=== PATIENT | female | born 1985 | race Caucasian/White ===

== ENCOUNTER 2018-02-05 13:49 | Emergency (ER) | payer MEDICAID ==
--- OUTSIDE RECORDS SUMMARY | 2018-02-05 13:59 | XMS REPORT ---
:1985 External Reference #:[id number] Author Organization [employer] Address [address] [facility] [place] [address] [place] [address] Phone [phone] Care Team Providers Name Role Phone Bibi Wood DO Primary Care Physician Unavailable Payers Type Date Identification Numbers Payment Provider Subscriber Commercial Effective: Policy Number: Tony Serrato 2017 [id number] PayID: [id number] [place] [phone] Problems Description No Information Family History Date Family Member(s) Problem(s) Comments General Asthma General Stroke General Diabetes Father Asthma Father Hypercholesterolemia Mother Alive And Well Siblings 3 brothers/autism Siblings 1 sister asthma Social History Type Date Description Comments Lives With Lives With 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 needed for pain, avoid other nsaids Percocet Active Tablets 5-325mg 20tabs 1 tab by Eddie Campos 018 mouth Edita, every 6 MD hours as needed Lamictal 00/00/0 Active Tablets 25mg 1 tab bid Unknown 000 Adderall Active Tablets 20mg 1-2 by Unknown 000 mouth every day Diclofenac Hx Tablets DR 50mg Unknown Sodium 000 - 018 Nystatin Hx Ointment [id number] apply to Unknown 000 - /GM affected area twice 018 daily Acyclovir Hx Capsules 200mg 1 cap tid Unknown 000 - 018 Ventolin HFA Hx Aerosol 108(90Base 2 puffs by Unknown 000 - ) mcg/Act mouth four times a 018 day as needed Claritin Hx Capsules 10mg 1 by mouth Unknown 000 - every day 018 Vital Signs Date Vital Result Comment 02/05/2018 Height 64 inches 5'4" Heart Rate 82 /min BP Systolic Sitting 140 mmHg BP Diastolic Sitting 85 mmHg Respiratory Rate 14 /min Pain Level 8 01/27/2018 Height 64 inches 5'4" Weight 200.00 lb Heart Rate 76 /min BP Systolic Recheck 118 mmHg BP Diastolic Recheck 76 mmHg Respiratory Rate 16 /min Body Temperature 98.1 F BMI (Body Mass Index) 34.3 kg/m2 01/13/2018 Height 64 inches 5'4" Weight 200.00 lb Heart Rate 76 /min BP Systolic Recheck 118 mmHg BP Diastolic Recheck 74 mmHg Respiratory Rate 16 /min Body Temperature 98.2 F BMI (Body Mass Index) 34.3 kg/m2 11/25/2017 Height 64 inches 5'4" Weight 207.00 lb Heart Rate 80 /min Respiratory Rate 16 /min Body Temperature 98.4 F BMI (Body Mass Index) 35.5 kg/m2 Results Description No Information Procedures Date CPT Code Description Status 01/15/2018 57615 Carpal Tunnel Release Completed Encounters Type Date Location Provider CPT E/M Dx Office Visit 02/05/2018 [facility] Lopes M.D. 08451 M06.4 10:00a Of [facility] R20.8 G56.03 R22.31 Office Visit 01/13/2018 8:15a [facility], 78294 G56.03 Blaise Dia MD Office Visit 11/25/2017 8:00a [facility], [address] G56.03 [facility] [place] R22.32 R22.31 R20.0 Plan of Care Future Appointment(s):02/17/2018 9:30 am - Eddie Kohler MD at [facility] AT Uqvnctkm45/18/2018 - Sage Lopes M.D.M06.4 Inflammatory gmtumgticyddbpvK41.8 Other disturbances of skin sijkojamdJ22.03 Carpal tunnel syndrome, bilateral upper jbsxvS83.31 Localized swelling, mass and lump, right upper limb
--- OUTSIDE RECORDS SUMMARY | 2018-02-05 13:59 | XMS REPORT ---
:1985 External Reference #:[id number] Author Organization [employer] Address [address] [facility] [place] [address] [place] [address] Phone [phone] Care Team Providers Name Role Phone Bibi Wood DO Primary Care Physician Unavailable Payers Type Date Identification Numbers Payment Provider Subscriber Commercial Effective: Policy Number: Tony Serrato 2017 [id number] PayID: [id number] [place] [phone] Problems Description No Information Family History Date [...] Form Strength Qnty SIG Indications Ordering Provider Percocet Active Tablets 5-325mg 14tabs 1 tab by Eddie F 018 mouth Edita, every 6 MD hours as needed Lamictal 0 Active Tablets 25mg 1 tab bid Unknown 000 Adderall 0 Active Tablets 20mg 1-2 by Unknown 000 mouth every day Diclofenac [address] 50mg Unknown Sodium 000 - 018 Nystatin Hx Ointment [id number] apply to Unknown 000 - /GM affected area twice 018 daily Acyclovir Hx Capsules 200mg 1 cap tid Unknown 000 - 018 Ventolin HFA Hx Aerosol 108(90Base 2 puffs by Unknown 000 - ) mcg/Act mouth four times a 018 day as needed Claritin Hx Capsules 10mg 1 by mouth Unknown 000 - every day 018 Vital Signs Date Vital Result Comment 01/27/2018 Height 64 inches 5'4" Weight 200.00 [...] 35.5 kg/m2 Results Description No Information Procedures Description No Information Encounters Type Date Location Provider CPT E/M Dx Office Visit 01/13/2018 [facility], [address] G56.03 8:15a Blaise Dia MD Office Visit 11/25/2017 [facility], [address]39 G56.03 8:00a Blaise Dia MD R22.32 R22.31 R20.0 Plan of Care Future Appointment(s):02/26/2018 9:00 am - Eddie Kohler MD at [facility] AT [place]ty98/18/2018 10:00 am - Sage Lopes M.D. at [facility]01/27/2018 - Eddie Kohler MDG56.03 Carpal tunnel syndrome, bilateral upper limbsFollow up:Follow up: to OR
--- OUTSIDE RECORDS SUMMARY | 2018-02-05 13:59 | XMS REPORT ---
:1985 External Reference #:[id number] Author Organization [employer] Address [address] [facility] [place] [address] [place] [address] Phone [phone] Care Team Providers Name Role Phone Bibi Wood DO Primary Care Physician Unavailable Payers Type Date Identification Numbers Payment Provider Subscriber Commercial Effective: Policy Number: Tony Serrato 2017 [id number] PayID: [id number] [place] [phone] Problems Description No Information Family History Date [...] Form Strength Qnty SIG Indications Ordering Provider Lamictal 00/0 Active Tablets 25mg 1 tab bid Unknown 000 Adderall /0 Active Tablets 20mg 1-2 by Unknown 000 mouth every day Diclofenac 0000/[address] 50mg Unknown Sodium 000 - 018 Nystatin 00/0 Hx Ointment [id number] apply to Unknown 000 - /GM affected area twice 018 daily Acyclovir Hx Capsules 200mg 1 cap tid Unknown 000 - 018 Ventolin HFA Hx Aerosol 108(90Base 2 puffs by Unknown 000 - ) mcg/Act mouth four times a 018 day as needed Claritin Hx Capsules 10mg 1 by mouth Unknown 000 - every day 018 Vital Signs Date Vital Result Comment 01/13/2018 Height 64 inches 5'4" Weight 200.00 [...] Location Provider CPT E/M Dx Office Visit 11/25/2017 [facility], [address] G56.03 8:00a [facility] [place] R22.32 R22.31 R20.0 Plan of Care Future Appointment(s):02/05/2018 10:00 am - Sage Lopes M.D. at [facility]
[2018-02-05 14:03] VITALS: BP 157/91
[2018-02-05] MEDS ORDERED: HYDROcodone/ACETAMIN 5-325 MG* 1 TAB PO ONE (14:11)
[2018-02-05] MEDS ORDERED: Ibuprofen TAB* 600 MG PO ONE (14:20)
--- NOTE | 2018-02-05 14:22 | UC ---
Upper Extremity HPI - HPI Summary HPI Summary: Pt is a 32 y/o F presents to ED with L wrist pain s/p surgery. Aggravating factors: Picking things up, palpation. Pt has 4 kids that she is responsible for and needs to pick them up when dealing with them. Alleviating factors: Ice, Percocet. She notes that she was on the way to E for pain when car broke down on the side of the road. She needed to filler picker and carry four kids up the hill to urgent care. She presents to uncontrollably crying from stress/pain. - History of Current Complaint Chief Complaint: UCGeneralIllness Stated Complaint: HAND PAIN Time Seen by Provider: 02/05/18 14:11 Hx Obtained From: Patient Hx Last Menstrual Period: 02/04/18 Onset/Duration: Still Present, Worse Since - Having to carry children up hill Severity Currently: Severe Pain Intensity: 9 Pain Scale Used: 0-10 Numeric Location Of Pain: Is Discrete @ - L wrist Aggravating Factor(s): Lifting Alleviating Factor(s): Ice, Other: - Percocets - Allergies/Home Medications Allergies/Adverse Reactions: Allergies Allergy/AdvReac Type Severity Reaction Status Date / Time Penicillins Allergy Hives Verified 02/05/18 13:53 PMH/Surg Hx/FS Hx/Imm Hx Other Endocrine History: Neg: DM Other Cardiovascular History: Neg: CAD, HTN - Surgical History Surgical History: Yes Surgery Procedure, Year, and Place: X2, TUBAL LIGATION carpel tunnel - Family History Known Family History: Positive: Diabetes, Other - [place] Family History: NON CONTRIBUTORY - Social History Occupation: Unemployed Lives: With Family Alcohol Use: None Substance Use Type: None Smoking Status (MU): Heavy Every Day Tobacco Smoker Have You Smoked in the Last Year: No - Immunization History Most Recent Influenza Vaccination: never Most Recent Tetanus Shot: unknown Most Recent Pneumonia Vaccination: never Review of Systems Constitutional: Negative - fever Musculoskeletal: Other: - Wrist pain All Other Systems Reviewed And Are Negative: Yes Physical Exam - Summary Physical Exam Summary: General: well-appearing, no pain distress Skin: warm, color reflects adequate perfusion, dry Head: normal Eyes: EOMI, MICHELLE ENT: normal Neck: supple, nontender Respiratory: CTA, breath sounds present Cardiovascular: RRR Abdomen: soft, nontender Bowel: present Musculoskeletal: normal, strength/ROM intact Neurological: sensory/motor intact, A&O x3 Psychological: affect/mood appropriate Triage Information Reviewed: Yes Vital Signs: Initial Vital Signs Temp 96 F 02/05/18 13:57 Pulse 90 02/05/18 13:57 Resp 16 02/05/18 13:57 BP 157/91 02/05/18 13:57 Pulse Ox 100 02/05/18 13:57 Vital Signs Reviewed: Yes Upper Extremity Course/Dx - Course Course Of Treatment: BP noted and advised to follow up with PCP - Differential Dx/Diagnosis Provider Diagnoses: Elevated BP without dx of HTN Discharge - Discharge Plan Prescriptions: oxyCODONE/Acetamin 5/325 MG* [Percocet 5/325 TAB*] 1 tab PO Q4H PRN #20 tab MDD 6 PRN Reason: Pain Patient Education Materials: Wrist Injury (ED) Referrals: Bibi Wood DO [Primary Care Provider] - Jayden Stewart DO [Doctor of Osteopathy] - Additional Instructions: Your blood pressure was elevated during todays visit; please follow up with your primary care provider within a week for further evaluation
== END 2018-02-05 14:30 | disposition home or self-care (01) ==
LOC: UCEAST 13:49
DX: I10 Essential (primary) hypertension (principal); M25.532 Pain in left wrist; F17.200 Nicotine dependence, unspecified, uncomplicated; Z98.890 Other specified postprocedural states; Z88.0 Allergy status to penicillin
CPT/HCPCS: 99212; A9270-GY; G0463